=== PATIENT | male | born 1955 | race Caucasian/White ===

== ENCOUNTER 2025-07-18 18:09 | Emergency (ER) | payer MEDICARE ==
[~2025-07-18] VITALS: Ht 175.3 cm; Wt 83.9 kg
[2025-07-18 19:10] LABS: IMMATURE GRANULOCYTE ABSOLUTE 0.06 K/uL (0-1); NUCLEATED RED BLOOD CELLS 0.0 % (0.0-0.19); PLATELET COUNT (AUTO) 173 K/uL (130-400); RED BLOOD CELL COUNT(AUTO) 4.40 MIL/uL (4.50-6.20); RED CELL DISTRIBUTION WIDTH 17.1 % (11.0-15.5); WHITE BLOOD COUNT (AUTO) 6.9 K/uL (4.8-10.8)
[2025-07-18 19:25] LABS: CREATININE 1.0 mg/dL (0.5-1.3); GLOMERULAR FILTR. RATE CALC 82.0 mL/min (>90); GLUCOSE,RANDOM 92.0 mg/dL (70-105); SODIUM SERUM 140.0 mmol/L (136-145); UREA NITROGEN, BLOOD 20.0 mg/dL (7-18)
[2025-07-18 19:47] VITALS: TEMP 98.9
[2025-07-18 19:48] LABS: APPEARANCE,URINE CLEAR (CLEAR); GLUCOSE, URINE (UA) NEGATIVE (NEGATIVE); LEUKOCYTE ESTERASE ,URINE NEGATIVE Leu/uL (NEGATIVE); NITRATE,URINE NEGATIVE (NEGATIVE); OCCULT BLOOD,URINE SMALL (NEGATIVE)
[2025-07-18 19:50] LABS: ADD UA MICROSCOPIC YES
[2025-07-18 19:52] LABS: SQUAMOUS EPITHELIAL CELL,UR RARE /HPF (0-2)
--- NOTE | 2025-07-18 20:04 | EKG ---
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
--- NOTE | 2025-07-18 20:18 | HMCIMG ---
EXAM: CR Chest, 1 View. CLINICAL HISTORY: cp COMPARISON: None provided. FINDINGS: LUNGS: There is no mass, infiltrate, or acute pulmonary abnormality. PLEURAL SPACES: No pleural effusion or pneumothorax. MEDIASTINUM: Cardiac size and mediastinal contours within normal limits. BONES: No aggressive appearing osseous lesion seen. IMPRESSION: No acute cardiopulmonary pathology is evident. /[place]
--- NOTE | 2025-07-18 20:21 | ERN ---
General Chief Complaint: Chest Pain Stated Complaint: CHEST PAIN Time Seen by MD: 19:09 Source: patient History of Present Illness Initial Comments 70-year-old male with a past medical history of GERD only comes in with hypertension for the 1st time and a pinching chest pain located subxiphoid that comes and goes. Patient's blood pressure was 160/84. He states he has no histo ry of blood pressure problems. The pinching chest pain started around noon today and it is intermittent. Nothing the patient does can relieve it. This is the 1st time he has had the pain. As he is visiting and alone he wanted to have it checked out. Allergies: Coded Allergies: No Known Drug Allergies (Unverified Allergy, Unknown, 07/18/25) Past Medical History Past Medical History: GERD Past Surgical History: Appendectomy Constitutional: (-) chills, (-) diaphoresis, (-) fever, (-) malaise, (-) weakne ss, (-) other documentation EENTM: (-) eye pain, (-) blurred vision, (-) tearing, (-) double vision, (-) e ar pain, (-) ear discharge, (-) nose pain, (-) nose congestion, (-) throat pain, (-) Throat swelling, (-) mouth pain, (-) tooth pain, (-) mouth swelling, (-) other documentation Respiratory: (-) cough, (-) orthopnea, (-) short of breath, (-) stridor, (-) wheezing, (-) other documentation Cardiovascular: (+) chest pain Gastrointestinal/Abdominal: (-) nausea, (-) vomiting, (-) diarrhea, (-) abdominal pain, (-) abdominal distention, (-) constipation, (-) rectal bleeding, (-) dark stool/melena, (-) other documentation Genitourinary: (-) penile discharge, (-) dysuria, (-) frequency, (-) hematuria, (-) pain, (-) other documentation Musculoskeletal: (-) Neck pain, (-) back pain, (-) Flank Pain, (-) joint pain, (-) joint swelling, (-) muscle pain, (-) muscle stiffness, (-) gout, (-) other documentation Physical Exam General Appearance: (+) no apparent distress Orientation: (+) alert, (+) oriented x 3 Eye: bilateral eye normal inspection, bilateral eye PERRL, bilateral eye EOMI Ear, Nose, Throat: (+) hearing grossly normal, (+) normal ENT inspection, (+) moist mucous membraine Neck: (+) normal inspection, (+) supple, (+) full range of motion Respiratory: (+) chest non-tender, (+) lungs clear, (+) well ventilated Heart: (+) regular, (+) no gallop Vascular: (+) no edema, (+) normal peripheral pulse, (+) no JVD Gastrointestinal: (+) soft, (+) non-tender, (+) bowel sound present Results Laboratory and Microbiology Lab and Micro Result Laboratory Tests Test 07/18/25 19:00 07/18/25 19:42 07/18/25 22:58 White Blood Count 6.9 K/uL (4.8-10.8) Red Blood Count 4.40 MIL/uL (4.50-6.20) L Hemoglobin 13.3 g/dL (14.0-18.0) L Hematocrit 39.4 % (42-54) L Mean Corpuscular Volume 89.5 fL (79-99) Mean Corpuscular Hemoglobin 30.2 pg (27.0-33.0) Mean Corpuscular Hemoglobin Concent 33.8 g/dL (32.0-36.0) Red Cell Distribution Width 17.1 % (11.0-15.5) H Platelet Count 173 K/uL (130-400) Mean Platelet Volume 10.5 fL (7.5-10.5) Immature Granulocyte % (Auto) 0.9 % (0-1) Neutrophils (%) (Auto) 62.6 % (40.0-77.0) Lymphocytes (%) (Auto) 22.4 % (21.0-51.0) Monocytes (%) (Auto) 10.9 % (3.0-13.0) Eosinophils (%) (Auto) 2.2 % (0.0-8.0) Basophils (%) (Auto) 1.0 % (0.0-5.0) Neutrophils # (Auto) 4.3 K/uL (1.8-7.7) Lymphocytes # (Auto) 1.5 K/uL (1.0-4.8) Monocytes # (Auto) 0.8 K/uL (0.1-1.0) Eosinophils # (Auto) 0.15 K/uL (0.00-0.70) Basophils # (Auto) 0.07 K/uL (0.00-0.20) Absolute Immature Granulocyte (auto 0.06 K/uL (0-1) Nucleated Red Blood Cells 0.0 % (0.0-0.19) Sodium Level 140 mmol/L (136-145) Potassium Level 3.6 mmol/L (3.5-5.1) Chloride Level 103 mmol/L (101-111) Carbon Dioxide Level 29 mmol/L (21-32) Blood Urea Nitrogen 20 mg/dL (7-18) H Creatinine 1.0 mg/dL (0.5-1.3) Glomerular Filtration Rate Calc 82 mL/min (>90) Random Glucose 92 mg/dL (70-105) Total Calcium 8.9 mg/dL (8.5-10.1) Magnesium Level 1.70 mg/dL (1.80-2.40) L 2.30 mg/dL (1.80-2.40) Troponin I High Sensitivity 6 ng/L (4-75) Urine Color LIGHT-YELLOW (YELLOW) Urine Appearance CLEAR (CLEAR) Urine pH 6.0 (5.0-8.0) Urine Specific [place] 1.016 (1.001-1.031) Urine Protein NEGATIVE mg/dL (NEGATIVE) Urine Glucose (UA) NEGATIVE mg/dL (NEGATIVE) Urine Ketones 5 mg/dL (NEGATIVE) H Urine Occult Blood SMALL (NEGATIVE) H Urine Nitrate NEGATIVE (NEGATIVE) Urine Bilirubin NEGATIVE mg/dL (NEGATIVE) Urine Urobilinogen 0.2 mg/dL (0.2-1.0) Urine Leukocyte Esterase NEGATIVE Mick/uL Urine RBC 6-10 /HPF (0-1) H Urine WBC 2-5 /HPF (0-1) H Urine Squamous Epithelial Cells RARE /HPF (0-2) Urine Bacteria None /HPF (None Seen) MDM MDM: Differential diagnosis: Muscle spasm, GERD, hiatal hernia, possible cardiac origin, possible lung origin. Rationale: Tests considered and ordered secondary to shared decision making include: Previous outside records reviewed: Old ER visits. Risk of complication and/or morbidity or mortality of patient management: None Medications-Per medication reconciliation Need for hospitalization: Patient does meet criteria for hospitalization. Need for emergency major/minor surgery: No There are no social concerns with this patient. Prescription drug management Prescriptions will include symptomatic care Patient's prior external medical records from other ER visits were reviewed by me as indicated. Prior testing and results from previous visits were reviewed. Prior tests were taken into account with medical decision making and resource utilization, independent historian/historians were used to obtain complete medical history. I independently interpreted the test that were performed, results were reviewed by me and considered findings on radiology if ordered. Patient's chest x-ray is normal. Patient's EKGs normal. Patient's CBC is normal except for mild anemia. Patient's chemistry panel shows a slight elevation of the BUN a mild hypomagnesemia. Patient's urine is negative as well except for a small amount of ketones. I will replace the patient's magnesium I will give him some fluid remeasure his blood pressure and if necessary give him some oral clonidine. With the fluid the patient has noticed that his little twitching and twinging in his chest wall is gone. The oral clonidine has dropped his systolic blood pr essure to 118. I will discharge him home. ED Course Orders Procedure Category Date Status Time Cbc With Differential LAB 07/18/25 Complete 18:13 Chest 1vw RAD 07/18/25 Resulted 18:13 12 Lead Ekg Tracing- EKG 07/18/25 Complete Technical 18:13 Magnesium LAB 07/18/25 Complete 18:13 Troponin I High LAB 07/18/25 Complete Sensitivity 18:13 Urinalysis Profile LAB 07/18/25 Complete 18:13 Basic Metabolic Panel LAB 07/18/25 Complete 18:13 Magnesium 2gm Premix PHA 07/18/25 In Process 50ml (Magnesium 2gm 21:30 Lactated Ringers PHA 07/18/25 Complete 1000ml (Lactated 21:09 Magnesium LAB 07/18/25 Complete 22:34 Clonidine Hcl 0.2 Mg PHA 07/18/25 Complete Tablet (Catapres 0. 23:30 Hydralazine 10mg Tab PHA 07/19/25 Complete (Apresoline 10mg Ta 01:00 Current Medications Medications (Trade) Dose Ordered Sig/Emily Route PRN Reason Start Time Stop Time Status Last Admin Dose Admin Clonidine HCl (CATApres 0.2 MG TAB) 0.2 mg ONCE ONCE PO 07/18/25 23:30 07/18/25 23:31 DC 07/18/25 23:15 Hydralazine HCl (APRESOLine 10MG TAB) 10 mg ONCE ONCE PO 07/19/25 01:00 07/19/25 01:01 DC 07/19/25 01:00 Lactated Ringer's (Lactated Ringers 1000ml) 1,000 ml BOLUS STAT IV 07/18/25 21:09 07/18/25 21:13 DC 07/18/25 21:35 Magnesium Sulfate 50 ml @ 0 mls/hr PROTOCOL IV 07/18/25 21:30 08/17/25 21:29 07/18/25 21:34 Vital Signs Date Time Temp Pulse Resp B/P (MAP) Pulse Ox O2 Delivery O2 Flow Rate FiO2 07/18/25 23:15 63 181/94 07/18/25 23:08 63 12 181/94 98 Room Air* 0 07/18/25 19:47 99.0 72 12 167/87 98 Room Air* 0 07/18/25 18:10 98.1 74 16 158/84 98 Room Air Patient's chest x-ray is normal. Patient's EKGs normal. Patient's troponin is normal. DX & DISP Disposition: Discharge Departure Impression: Primary Impression: Chest wall pain Additional Impressions: Muscle spasm, Hypertension, Hypomagnesemia, Dehydrat ion Condition: Stable Additional Instructions: I think the twinge in her chest wall was due to muscle spasm possibly from dehydration. Your EKG was normal your cardiac enzymes are normal your chemistry panel is normal. We have replaced her magnesium and gave you a single dose of clonidine to bring your blood pressure back to normal. By the way hypertension can be a sign of dehydration as well. Please follow-up with her regular physician to have your blood pressure checked once you get back home but for now you are fine. Referrals: SELF,REFERRAL (PCP) BAKARI TESFAYE MD Jul 18, 2025 20:21
[2025-07-18] MEDS: MAGNESIUM 2GM PREMIX 50ML 50 ML IV SCH (21:34)
[2025-07-18] MEDS: LACTATED RINGERS 1000ML IV STA (21:35)
[2025-07-19 01:04] VITALS: BP 113/64; PULSE 67; RESP 12; O2SAT 98
== END 2025-07-19 01:18 | disposition home or self-care (01) ==
LOC: EDH 18:09
DX: R07.89 Other chest pain (principal); M62.838 Other muscle spasm; I10 Essential (primary) hypertension; E83.42 Hypomagnesemia; E86.0 Dehydration; Z90.49 Acquired absence of other specified parts of digestive tract
CPT/HCPCS: 99285; 96365; 71045; 96366; 83735 ×2; 84484; 80048; 85025; 81001; 36415; 93005; J3475